=== PATIENT | female | born 1975 | race African-American/Black ===

== ENCOUNTER 2017-03-13 02:00 | Emergency (ER) | payer SELFPAY ==
[~2017-03-13] VITALS: Ht 175.3 cm; Wt 87.0 kg
== END 2017-03-13 02:57 | disposition left against medical advice (07) ==
LOC: ER 02:00
DX: R10.9 Unspecified abdominal pain (principal); Z53.21 Procedure and treatment not carried out due to patient leaving prior to being seen by health care provider